=== PATIENT | female | born 2000 | race Caucasian/White ===

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

== ENCOUNTER → 2022-01-19 13:07 | Outpatient (BNVA) | payer MEDICAID, SELFPAY | PROVIDERS: PCP Pediatrics Adolescent Medicine; Visit Provider Internal Medicine Critical Care Medicine | DX: J45.20 Mild intermittent asthma, uncomplicated (principal); J30.9 Allergic rhinitis, unspecified; Z77.22 Contact with and (suspected) exposure to environmental tobacco smoke (acute) (chronic) | CPT/HCPCS: 99213 ==

== ENCOUNTER 2023-01-18 00:32 | Emergency (ER) | payer MEDICAID, SELFPAY ==
[2023-01-18 00:44] VITALS: BP 113/89; PULSE 103; RESP 16; TEMP 36.8; O2SAT 98; BMI 25.6
--- NOTE | 2023-01-18 00:53 | W.ED.SKABFB ---
HPI - Skin/Abscess/Foreign Bdy General: Chief complaint: Allergic Reaction Stated complaint: facial swelling Time Seen by Provider: 01/18/23 00:37 History of Present Illness: Starting that she may [id number] female comes in tonight for complaints of rash to the face with some mild redness and swelling. Patient came in for concern of allergic reaction. Patient appears nontoxic. Patient appears in no pain. Patient reports seasonal allergies. Patient reports no new foods. Patient does report that she [facility] Associated symptoms: Deny fever(s), nausea or vomiting Review of Systems General: Reports: 10 or more systems reviewed and unremarkable except in HPI and below Const: Denies: fever(s) Card: Denies: chest pain Resp: Denies: dyspnea GI: Denies: nausea or vomiting : Denies: difficulty voiding Skin/Breast: Reports: rash PFS ED PFSH: Medical History (Updated 01/18/23 @ 01:00 by ORQUIDEA Narayan) Asthma Glaucoma Seasonal allergies Surgical History H/O eye surgery Family History Father Diabetes Cancer Colon & Gallbladder Hypertension Family/Other Cancer Other Sickle cell anemia Social History Smoking and tobacco status: never smoked Second hand smoke exposure: Yes Alcohol intake: never Substance/Drug Use: never Adopted: No Lives independently: Yes Household members: family Marital status: Single Highest education level completed: 11th Grade Current occupational status: student Current occupation: ironworker apprentice shop Current occupational exposures/hazards: No Leisure activites: sports Do you think of yourself as: Straight/Heterosexual Current gender identity: Female Female Reproductive History: Para: 0 Spontaneous abortions: No Physical Exam Const: COMMON NORMALS: alert HENMT: COMMON NORMALS: normocephalic HEAD & SCALP: normocephalic Neck/C-Spine: COMMON NORMALS: full ROM Resp: COMMON NORMALS: normal respiratory effort and clear to auscultation bilaterally AUSCULTATION: clear to auscultation bilaterally Cardio: COMMON NORMALS: regular rate and regular rhythm RATE: regular rate RHYTHM: regular rhythm Extremity: COMMON NORMALS: normal to inspection Neuro: SENSORIUM/ORIENTATION: Yes alert Skin: NARRATIVE SKIN EXAM: Erythema to the face. Course Vital Signs: Vital signs: Vital Signs Temperature 98.2 F 01/18/23 00:44 Pulse Rate 103 H 01/18/23 00:44 Respiratory Rate 16 01/18/23 00:44 Blood Pressure 113/89 01/18/23 00:44 Pulse Oximetry 98 01/18/23 00:44 Oxygen Delivery Me thod Room Air 01/18/23 00:44 MDM - Skin/Abscess/Foreign Bdy Medicial Decision Making Patient comes in for redness to the face. On exam respirations are even lungs are clear to auscultation. Heart rates regular. Skin is warm and dry. Vital signs are normal. Patient does have some light erythema to the face. Differential diagnosis includes but not limited to allergic reaction, angioedema, adverse drug effect. Patient has no recent exposure to allergens. Patient does report taking a Plan B drug tonight for postexposure sexual intercourse at around 6:00 and then within 3 hours patient started having the facial redness and flushing. Believe patient just had a adverse drug effect secondary to day hormone burst. Patient was encouraged to take some acetaminophen and drink lots of fluids she was given a lorazepam for anxiety. Patient can use antihistamine as needed for discomfort. Patient reported understanding and agreed to plan. Discharge Plan Discharge Patient Disposition: Home Clinical Impression: Adverse drug effect Qualifiers: Encounter type: initial encounter Qualified Code(s): T50.905A - Adverse effect of unspecified drugs, medicaments and biological substances, initial encounter Condition: Stable Prescriptions: No Action fluticasone propionate [Children's Flonase Allergy Rlf] 50 mcg/actuation spray,suspension 1 spray intranasal Q12H 30 Days Qty: 16 6RF Rx Instructions: administer into each nostril N.meningitidis B,lipid fHBP rc 120 mcg/0.5 mL syringe 0.5 ml IM ONCE Qty: 1 0RF fexofenadine [Amber Allergy] 180 mg tablet 180 mg PO DAILY PRN azelastine 137 mcg (0.1 %) aerosol,spray 1 spray intranasal BID 30 Days Qty: 30 6RF Rx Instructions: administer into each nostril albuterol sulfate [ProAir HFA] 90 mcg/actuation HFA aerosol inhaler 2 puff INHALATION Q4H PRN (Reason: shortness of breath or wheezing) Qty: 8.5 3RF budesonide-formoterol [Symbicort] 80-4.5 mcg/actuation HFA aerosol inhaler See Rx Instructions INHALATION .COMPLEX 30 Days Qty: 10.2 3RF Rx Instructions: 1 inhalation As needed up to 6 times a day; Discharge Orders: Discharge ED (Routine); Ordered 01/18/23 Ordered By: Capo Douglas Referrals: Kajal Owusu FNP [Primary Care Provider] - Discharge Diet: Usual diet Discharge Activity: Increase activity as tolerated Activity Restrictions/Additional Instructions: Continue with routine medications. Use acetaminophen as needed for pain or fever. Use antihistamine such as Amber as needed for itching and rash. Drink plenty of water and fluids. Follow-up with primary care. Coding Level of Care Code ED Occupational Health Nursing Director for Saloni Coughlin
[2023-01-18] MEDS: LORazepam 0.5 mg Tablet PO (01:10)
== END 2023-01-18 01:14 | disposition home or self-care (01) ==
PROVIDERS: Emergency Provider Nurse Practitioner Family; PCP Nurse Practitioner Family
DX: L27.0 Generalized skin eruption due to drugs and medicaments taken internally (principal); T38.4X5A Adverse effect of oral contraceptives, initial encounter; Z77.22 Contact with and (suspected) exposure to environmental tobacco smoke (acute) (chronic)
CPT/HCPCS: 99283